=== PATIENT | male | born 1935 | race Caucasian/White ===

== ENCOUNTER 2017-11-21 19:04 | Emergency (ER) | payer OTHER ==
[~2017-11-21] VITALS: Ht 180.3 cm; Wt 93.6 kg
[~2017-11-21 19:04] MED LIST: LEXAPRO20 MG PO; ZITHROMAX250 MG PO
[2017-11-21] MEDS ORDERED: KEFLEX500 MG PO (22:38)
[2017-11-21] MEDS ORDERED: ULTRAM50 MG PO (22:38)
[2017-11-21 23:03] VITALS: BP 176/114
== END 2017-11-21 23:23 | disposition home or self-care (01) ==
LOC: EME 19:04
DX: S62.631B Displaced fracture of distal phalanx of left index finger, initial encounter for open fracture (principal); S68.12 Partial traumatic metacarpophalangeal amputation of other and unspecified finger; W31.2XXA Contact with powered woodworking and forming machines, initial encounter; Y93.H3 Activity, building and construction; F32.9 Major depressive disorder, single episode, unspecified; E78.5 Hyperlipidemia, unspecified; I10 Essential (primary) hypertension; Z79.82 Long term (current) use of aspirin
CPT/HCPCS: 73140; 99281; 99284; S0020